=== PATIENT | male | born 1990 | race Caucasian/White ===

== ENCOUNTER 2023-04-18 06:12 | Day surgery (SDC) | payer OTHER ==
[~2023-04-18] VITALS: Ht 170.2 cm; Wt 68.0 kg
[2023-04-18] MEDS ORDERED: CEFAZOLIN SOD 1 GM in D5W 50 ML IV ONE (07:00)
[2023-04-18] MEDS ORDERED: PROPOFOL 200MG/ 20ML VIAL (DIPRIVAN) IV ONE (07:38)
[2023-04-18] MEDS ORDERED: METHYLENE BLUE 1 ML AMPUL INJ ONE (07:38)
[2023-04-18] MEDS ORDERED: DEXAMETHASONE SOD PHOSPHATE 4 MG/ML VIAL ONE (07:38)
[2023-04-18] MEDS ORDERED: WATER FOR IRRIGATION,STERILE 1,000 ML IRRIG.SOLN IR ONE (07:38)
[2023-04-18] MEDS ORDERED: SUGAMMADEX SODIUM 200 MG/2 ML VIAL IV ONE (07:38)
[2023-04-18] MEDS ORDERED: fentaNYL CITRATE/PF 100 MCG/2 ML AMP ONE (07:38)
[2023-04-18] MEDS ORDERED: HYDROmorphone 2 MG/ML VIAL ONE (07:38)
[2023-04-18] MEDS ORDERED: NS IRRIG SOLN 1000 ML IR ONE (07:38)
[2023-04-18] MEDS ORDERED: ROCURONIUM BROMIDE 10 MG/ML (ZEMURON) ONE (07:38)
[2023-04-18] MEDS ORDERED: NS 1000 ML IV.SOLN IV ONE (07:38)
[2023-04-18] MEDS ORDERED: ONDANSETRON HCL 4 MG/2 ML VIAL ONE ×2 (07:38→11:19)
[2023-04-18] MEDS ORDERED: KETOROLAC TROMETHAMINE 30 MG VIAL ONE (07:38)
[2023-04-18] MEDS ORDERED: BUPIVACAINE /PF 0.5% 30 ML VIAL ONE (07:38)
[2023-04-18] MEDS ORDERED: SUCCINYLCHOLINE CHLORIDE 20 MG/ML(QUELICIN) ONE (07:38)
[2023-04-18] MEDS ORDERED: ACETAMINOPHEN I.V. 1000 MG 100 ML IV ONE (08:03)
[2023-04-18] MEDS ORDERED: HYDROmorphone 1 MG/ML INJ. CARTRIDGE IVP PRN ×2 (08:15)
[2023-04-18] MEDS ORDERED: HYDROmorphone 2 MG/ML VIAL IVP PRN (08:15)
[2023-04-18] MEDS ORDERED: ONDANSETRON HCL 4 MG/2 ML VIAL IVP PRN (08:15)
[2023-04-18] MEDS ORDERED: HYDROcodone/ACETAMIN 5-325 MG TAB (NORCO/ VICODIN) PO PRN (09:15)
[2023-04-18] MEDS ORDERED: D5/0.45 NS 1,000 ML IV SCH (09:15)
[2023-04-18 13:21] VITALS: BP_SYST 122
== END 2023-04-18 14:47 | disposition home or self-care (01) ==
LOC: SDS 06:12 → SMU 06:13 → SDS 14:47
PROVIDERS: ATTEND Colon & Rectal Surgery
DX: K80.10 Calculus of gallbladder with chronic cholecystitis without obstruction (principal); G40.909 Epilepsy, unspecified, not intractable, without status epilepticus; F20.9 Schizophrenia, unspecified; Z79.899 Other long term (current) drug therapy
CPT/HCPCS: 87081; 47563; 86886; 86900; 86901; 36415; 74300; 88304; Q9968; J3490 ×2; J0690; J1100; J1885; J2405; J2704; J0330; J3010; J1170; Q9967; J7060; J7120; J7030; C1758; C1727; J0131; 76000; J1956